=== PATIENT | female | born 1945 | race Two or more races ===

== ENCOUNTER 2024-07-09 18:58 | Emergency (ER) | payer OTHER ==
[~2024-07-09] VITALS: Ht 167.6 cm; Wt 69.4 kg
[~2024-07-09 18:58] MED LIST: TIROSINT25 MCG
[2024-07-09] MEDS ORDERED: ENBREL50 MG/1 M1 (19:44)
== END 2024-07-10 00:18 | disposition home or self-care (01) ==
LOC: ER 19:00
DX: S80.212A Abrasion, left knee, initial encounter (principal); W19.XXXA Unspecified fall, initial encounter; Y93.89 Activity, other specified; Y92.89 Other specified places as the place of occurrence of the external cause; Y99.8 Other external cause status; S80.212D Abrasion, left knee, subsequent encounter; S80.212S Abrasion, left knee, sequela; L08.9 Local infection of the skin and subcutaneous tissue, unspecified

== ENCOUNTER 2025-06-22 18:51 | Emergency (ER) | payer OTHER ==
[~2025-06-22] VITALS: Ht 167.6 cm; Wt 64.9 kg
[~2025-06-22 18:51] MED LIST changes: +ENBREL50 MG/1 M1
[2025-06-22] MEDS ORDERED: FAMOTIDINE/PF 20 MG/2 ML VIAL IV STA (19:43)
[2025-06-22] MEDS ORDERED: 0.9 % SODIUM CHLORIDE 1,000 ML IV STA (19:43)
[2025-06-22] MEDS ORDERED: ONDANSETRON HCL 2 MG/ML VIAL IV STA (19:43)
[2025-06-22] MEDS ORDERED: ONDANSETRON HCL 2 MG/ML VIAL ONE (20:07)
[2025-06-22] MEDS ORDERED: FAMOTIDINE/PF 20 MG/2 ML VIAL ONE (20:07)
[2025-06-22 21:04] LABS: BASO % 0.7 % (0.1-1.2); EOS # 0.04 (0.04-0.54); EOS % 0.4 % (0.7-7.0); LYMPH # 0.89 (1.18-3.74); LYMPH % 9.8 % (19.3-53.1); MEAN PLATELET VOLUME 11.40 fl (9.4-12.4); MONO # 0.96 (0.24-0.82); MONO % 10.5 % (4.7-12.5); NEUT # 7.08 (1.56-6.13); NEUT % 77.7 % (34.0-71.1); RED CELL DISTRIBUTION WIDTH 13.8 % (11.6-14.4)
[2025-06-22 21:06] LABS: ERYTHROCYTE SEDIMENTATION RATE 64 mm/hr (0-30)
[2025-06-22] MEDS ORDERED: CEFTRIAXONE SODIUM 2,000 MG VIAL IV ONE (21:15)
[2025-06-22 21:29] LABS: INR 1.12
[2025-06-22 21:34] LABS: ALT/SGPT 42.0 U/L (12-78); AST/SGOT 48.0 U/L (15-37); BILIRUBIN TOTAL 1.8 mg/dL (0.3-1.2); BUN CREA RATIO 16.0 (7.0-25.0); CREATININE SERUM 0.88 mg/dL (0.55-1.02); GFR 62.31; GLOBULINA 3.9 G/DL (2.4-3.5); GLUCOSE FASTING 133.0 mg/dL (65-100); OSMOLALITY SERUM 272.0 MOSM/KG (275-295)
[2025-06-22 23:07] LABS: URINE APPEARANCE Cloudy; URINE BILIRRUBIN Negative (NEGATIVE); URINE COLOR Dark Yellow; URINE GLUCOSE Negative (NEGATIVE); URINE KETONE Trace (NEGATIVE); URINE LEUKOCYTE Large; URINE NITRATE Negative; URINE PROTEIN 30 (NEGATIVE); URINE UROBILINOGEN 1.0 E.U./dl
[2025-06-22 23:15] LABS: URINE BACTERIA 759.6 uL (0.0-1933); URINE EPITHELIAL CELLS 53.0 uL (0.0-38.8); URINE RBC 15.4 uL (0.0-20.8); URINE WBC 953.1 uL (0.0-23.2)
[2025-06-22 23:31] LABS: URINE BLOOD TRACE; URINE CAST 1.13 uL (0.0-1.40)
[2025-06-23] MEDS ORDERED: KETO10TA2 PO (00:25)
[2025-06-23] MEDS ORDERED: PEPCID AC20 MG PO (00:25)
[2025-06-23] MEDS ORDERED: CIPRO500 MG PO (00:25)
[2025-06-23] MEDS ORDERED: BACTRIM DS TAB1 EACH PO (00:25)
[2025-06-23] MEDS ORDERED: METRONIDAZOLE500 MG PO (00:25)
== END 2025-06-23 02:28 | disposition home or self-care (01) ==
LOC: ER 18:52
PROVIDERS: Physician Assistant Medical
DX: N39.0 Urinary tract infection, site not specified (principal); L03.012 Cellulitis of left finger; L03.317 Cellulitis of buttock; K57.32 Diverticulitis of large intestine without perforation or abscess without bleeding; R79.82 Elevated C-reactive protein (CRP); R74.01 Elevation of levels of liver transaminase levels; E86.0 Dehydration
CPT/HCPCS: 36415; 73120; 74177; 96365; 96366; 99284; J0696; J2405; J3490; J7030; Q9965

== ENCOUNTER 2025-06-24 11:13 | Inpatient (IN) | payer OTHER ==
[~2025-06-24] VITALS: Ht 165.1 cm; Wt 68.0 kg
[~2025-06-24 11:13] MED LIST changes: +BACTRIM DS TAB1 EACH PO; +CIPRO500 MG PO; +KETO10TA2 PO; +METRONIDAZOLE500 MG PO; +PEPCID AC20 MG PO
--- NOTE | 2025-06-24 12:18 | NUR ---
SE RECIBE PTE ALERTA Y ORIENTADA X3 QUIEN REFIERE TENER FIEBRE Y ESTAR MAREADA HACE 2 GARAY. SE MIDEN S/V Y SE UBICA.
[2025-06-24] MEDS ORDERED: 0.9 % SODIUM CHLORIDE 1,000 ML IV SCH ×2 (15:15→21:30)
[2025-06-24] MEDS ORDERED: FAMOtidine 10 MG/ML (4ML VIAL) IV PUSH ONE (15:15)
[2025-06-24] MEDS ORDERED: CEFTRIAXONE SODIUM 2,000 MG VIAL IV ONE (15:15)
[2025-06-24] MEDS ORDERED: ONDANSETRON HCL 2 MG/ML VIAL IV ONE (15:15)
[2025-06-24] MEDS ORDERED: KETOROLAC TROMETHAMINE 30 MG VIAL IV ONE (15:15)
[2025-06-24] MEDS ORDERED: ONDANSETRON HCL 2 MG/ML VIAL ONE (15:41)
[2025-06-24] MEDS ORDERED: KETOROLAC TROMETHAMINE 30 MG VIAL ONE (15:41)
[2025-06-24] MEDS ORDERED: CEFTRIAXONE SODIUM 2,000 MG VIAL ONE (15:42)
[2025-06-24] MEDS ORDERED: FAMOTIDINE/PF 20 MG/2 ML VIAL ONE (15:42)
[2025-06-24 17:12] LABS: BASO % 0.7 % (0.1-1.2); EOS # 0.03 (0.04-0.54); EOS % 0.2 % (0.7-7.0); LYMPH # 1.07 (1.18-3.74); LYMPH % 8.8 % (19.3-53.1); MEAN PLATELET VOLUME 11.40 fl (9.4-12.4); MONO # 1.07 (0.24-0.82); MONO % 8.8 % (4.7-12.5); NEUT # 9.03 (1.56-6.13); NEUT % 74.5 % (34.0-71.1); RED CELL DISTRIBUTION WIDTH 13.6 % (11.6-14.4)
[2025-06-24 17:13] LABS: URINE APPEARANCE Cloudy; URINE BILIRRUBIN Small (NEGATIVE); URINE BLOOD Negative; URINE COLOR Orange; URINE GLUCOSE Negative (NEGATIVE); URINE KETONE Trace (NEGATIVE); URINE LEUKOCYTE Small; URINE NITRATE Positive; URINE PROTEIN 30 (NEGATIVE); URINE UROBILINOGEN 1.0 E.U./dl
[2025-06-24 17:17] LABS: URINE BACTERIA 2059.1 uL (0.0-1933); URINE EPITHELIAL CELLS 115.1 uL (0.0-38.8); URINE RBC 24.6 uL (0.0-20.8); URINE WBC 33.8 uL (0.0-23.2)
--- NOTE | 2025-06-24 17:25 | NUR ---
SE ORIENTA PACIENTE ACERCA DE TRATAMIENTO. REFIERE ENTENDER Y ACEPTAR. SE COLECTAN MUESTRAS DE LABORATORIO Y SE JAMIE ENVASE DE U/A CON INSTRUCCIONES. SE ADMINISTRAN MEDICAMENTOS LILI PRESCRITOS.
[2025-06-24 17:43] LABS: ALT/SGPT 46.0 U/L (12-78); AST/SGOT 35.0 U/L (15-37); BILIRUBIN TOTAL 1.16 mg/dL (0.3-1.2); BUN CREA RATIO 15.0 (7.0-25.0); CREATININE SERUM 1.17 mg/dL (0.55-1.02); GFR 44.85; GLOBULINA 3.7 G/DL (2.4-3.5); GLUCOSE FASTING 119.0 mg/dL (65-100); OSMOLALITY SERUM 271.0 MOSM/KG (275-295)
[2025-06-24 17:57] LABS: URINE CAST > 21.83 uL (0.0-1.40)
[2025-06-24 18:01] LABS: URINE YEAST FEW /hpf
[2025-06-24 18:04] LABS: ERYTHROCYTE SEDIMENTATION RATE 60 mm/hr (0-30)
[2025-06-24] MEDS ORDERED: VANCOMYCIN HCL 1,000 MG VIAL IV SCH (21:26)
[2025-06-24] MEDS ORDERED: CEFTRIAXONE SODIUM 2,000 MG in 0.9 % SODIUM CHLORIDE 100 ML IV SCH (21:26)
[2025-06-24] MEDS ORDERED: KETOROLAC TROMETHAMINE 15 MG VIAL IU PRN (21:30)
[2025-06-24] MEDS ORDERED: ONDANSETRON HCL 4 MG in 0.9 % SODIUM CHLORIDE 50 ML IV PRN (21:30)
[2025-06-24] MEDS ORDERED: ACETAMINOPHEN 500 MG GEL..CAP PO PRN (21:30)
[2025-06-25 02:11] LABS: INR 1.08
[2025-06-25 03:05] VITALS: BP 108/69; O2SAT 95
[2025-06-25] MEDS ORDERED: ENOXAPARIN SODIUM 40 MG/0.4 ML SYRINGE SUBCUTANEO SCH (09:00)
[2025-06-25] MEDS ORDERED: FAMOTIDINE/PF 20 MG in 0.9 % SODIUM CHLORIDE 8 ML IV PUSH SCH (09:00)
[2025-06-25 09:16] VITALS: BP 129/61; BP 97/49; O2SAT 96; O2SAT 99
[2025-06-25] MEDS ORDERED: KETOROLAC TROMETHAMINE 30 MG VIAL IV PRN (13:30)
[2025-06-25 18:02] VITALS: BP 134/77
[2025-06-26 02:43] VITALS: BP 117/70; O2SAT 98
[2025-06-26 02:55] VITALS: BP 117/70; O2SAT 98
[2025-06-26] MEDS ORDERED: LINEZOLID 600 MG TABLET PO SCH (09:00)
[2025-06-26 09:10] VITALS: BP 108/44; O2SAT 97
[2025-06-26] MEDS ORDERED: POLYETHYLENE GLYCOL 3350 17 GM BLIST.PACK PO NR (11:00)
[2025-06-26] MEDS ORDERED: CHLORHEXIDINE GLUCONATE 15ML BRUSH KIT MM SCH (12:37)
[2025-06-26] MEDS ORDERED: CHLORHEXIDINE GLUCONATE 120 ML BOTTLE TOP SCH (17:00)
[2025-06-27 00:53] VITALS: BP 128/76; O2SAT 98
[2025-06-27 06:47] LABS: BASO % 1.0 % (0.1-1.2); EOS # 0.11 (0.04-0.54); EOS % 1.9 % (0.7-7.0); LYMPH # 1.45 (1.18-3.74); LYMPH % 25.1 % (19.3-53.1); MEAN PLATELET VOLUME 11.40 fl (9.4-12.4); MONO # 1.09 (0.24-0.82); NEUT # 3.01 (1.56-6.13); NEUT % 52.2 % (34.0-71.1); RED CELL DISTRIBUTION WIDTH 14.0 % (11.6-14.4)
[2025-06-27 07:01] LABS: MONO % 18.9 % (4.7-12.5)
[2025-06-27 08:05] LABS: BUN CREA RATIO 19.0 (7.0-25.0); CREATININE SERUM 0.43 mg/dL (0.55-1.02); GFR 142.38; GLUCOSE FASTING 96.0 mg/dL (65-100); OSMOLALITY SERUM 287.0 MOSM/KG (275-295)
[2025-06-27] MEDS ORDERED: POLYETHYLENE GLYCOL 3350 17 GM BLIST.PACK PO SCH (09:00)
[2025-06-27] MEDS ORDERED: MUPIROCIN 22 GM OINT..GM TUBE NASAL SCH (09:00)
[2025-06-27 09:09] VITALS: BP 124/79; O2SAT 95
[2025-06-27 18:12] VITALS: BP 130/80; O2SAT 98
[2025-06-28 03:16] VITALS: BP 146/64; O2SAT 96
[2025-06-28 09:28] VITALS: BP 150/84; O2SAT 97
[2025-06-28] MEDS ORDERED: LIDOCAINE HCL 2% 20ML VIAL IJ ONE (10:34)
[2025-06-28] MEDS ORDERED: DIPHENHYDRAMINE HCL 25 MG CAPSULE PO PRN (14:00)
[2025-06-28] MEDS ORDERED: ONDANSETRON HCL 2 MG/ML VIAL ONE (14:27)
[2025-06-28 18:05] VITALS: BP 138/72
[2025-06-29 03:12] VITALS: BP 144/78; O2SAT 98
[2025-06-29 09:21] VITALS: BP 155/69; O2SAT 96
[2025-06-29] MEDS ORDERED: DOXYCYCLINE HYCLATE 100MG EACH PO NR (18:00)
[2025-06-29 21:59] VITALS: BP 140/79
[2025-06-30 03:07] VITALS: BP 136/75; O2SAT 97
[2025-06-30] MEDS ORDERED: DOXYCYCLINE HYCLATE 100MG EACH PO SCH (09:00)
[2025-06-30 10:16] VITALS: BP 126/68; O2SAT 97
[2025-06-30 21:33] VITALS: BP 139/81
[2025-07-01 01:03] VITALS: BP 144/82; O2SAT 97
[2025-07-01 17:48] VITALS: BP 150/76; O2SAT 98
[2025-07-02 02:30] VITALS: BP 157/86; O2SAT 98
[2025-07-02 10:04] VITALS: BP 139/85; O2SAT 99
[2025-07-02 18:24] VITALS: BP 146/74; O2SAT 98
[2025-07-03 01:09] VITALS: BP 157/82; O2SAT 97
[2025-07-03 08:25] VITALS: BP 131/84; O2SAT 97
[2025-07-03 14:57] LABS: BASO % 0.5 % (0.1-1.2); EOS # 0.07 (0.04-0.54); EOS % 1.3 % (0.7-7.0); LYMPH # 1.12 (1.18-3.74); LYMPH % 20.5 % (19.3-53.1); MEAN PLATELET VOLUME 9.80 fl (9.4-12.4); MONO # 0.54 (0.24-0.82); MONO % 9.9 % (4.7-12.5); NEUT # 3.60 (1.56-6.13); NEUT % 65.8 % (34.0-71.1); RED CELL DISTRIBUTION WIDTH 14.4 % (11.6-14.4)
[2025-07-03 15:14] LABS: ALT/SGPT 43.0 U/L (12-78); AST/SGOT 30.0 U/L (15-37); BILIRUBIN TOTAL 0.45 mg/dL (0.3-1.2); BUN CREA RATIO 12.0 (7.0-25.0); CREATININE SERUM 0.68 mg/dL (0.55-1.02); GFR 83.9; GLOBULINA 3.8 G/DL (2.4-3.5); GLUCOSE FASTING 127.0 mg/dL (65-100); OSMOLALITY SERUM 287.0 MOSM/KG (275-295)
[2025-07-03 21:32] VITALS: BP 141/73
== END 2025-07-03 22:53 | disposition home or self-care (01) | DRG 603 ==
LOC: ER 11:13 → MEDI 21:56 → MEDJ 21:56
PROVIDERS: General Practice; Internal Medicine Infectious Disease; ADMIT Student in an Organized Health Care Education/Training Program; ATTEND Student in an Organized Health Care Education/Training Program
PROC: BW21YZZ Computerized Tomography (CT Scan) of Abdomen and Pelvis using Other Contrast (ICD-10-PCS; 2025-06-24)
PROC: 0H98XZZ Drainage of Buttock Skin, External Approach (ICD-10-PCS; principal; 2025-06-29)
DX: L03.317 Cellulitis of buttock (principal); D84.9 Immunodeficiency, unspecified; N39.0 Urinary tract infection, site not specified; N17.9 Acute kidney failure, unspecified; M06.9 Rheumatoid arthritis, unspecified; A49.02 Methicillin resistant Staphylococcus aureus infection, unspecified site